=== PATIENT | male | born 1955 | race Caucasian/White ===

== ENCOUNTER 2022-12-08 09:05 | Outpatient (REF) | payer OTHER, SELFPAY ==
[2022-12-08 14:35] LABS: HCT 49.9 % (40.0-50.0); HGB 16.7 g/dL (13.5-17.5); MCH 33.3 pg (27.0-33.0); MCHC 33.5 % (32.0-36.0); MCV 100 fL (80-95); Platelet Count 256 10^3/uL (130-400); RBC 5.01 10^6/uL (4.36-5.78); RDW 12.6 % (11.8-14.1); RDW-SD 46.4 fL; WBC 7.02 10^3/uL (4.4-10.8)
[2022-12-08 15:00] LABS: ALT 71 U/L (16-63); AST 41 U/L (15-37); Albumin 3.8 g/dL (3.4-5.0); Alkaline Phosphatase 129 U/L (46-116); Anion Gap 7.9 mmol/L (3-11); BUN 10 mg/dL (7-18); Bilirubin, Total 0.4 mg/dL (0.2-1.0); CO2 27.1 mmol/L (21.0-32.0); Calculated LDL 180 mg/dL (<100); Chloride 104 mmol/L (98-107); Cholesterol 255 mg/dL (<200); Estimated GFR 82.49 (mL/min/1.73m2); Ferritin 548 ng/mL (26-388); Glucose 106 mg/dL (74-106); HDL Cholesterol 54 mg/dL (40-60); Potassium 4.2 mmol/L (3.5-5.1); Sodium 139 mmol/L (136-145); TSH 1.51 uIU/mL (0.36-3.74); Total Protein 8.1 g/dL (6.4-8.2); Triglyceride 105 mg/dL (<150)
[2022-12-08 16:02] LABS: Hemoglobin A1C 5.7 % (<5.7)
== END 2022-12-08 09:06 | disposition home or self-care (01) ==
LOC: NCHCN 09:05
PROVIDERS: Visit Provider Family Medicine
DX: I10 Essential (primary) hypertension (principal); E78.5 Hyperlipidemia, unspecified; Z00.00 Encounter for general adult medical examination without abnormal findings; R53.83 Other fatigue; Z13.0 Encounter for screening for diseases of the blood and blood-forming organs and certain disorders involving the immune mechanism
CPT/HCPCS: 80053; 80061; 85027; 82728; 83036; 84443

== ENCOUNTER 2023-11-24 08:54 | Outpatient (REF) | payer OTHER, SELFPAY ==
[2023-11-24 14:44] LABS: ALT 44 U/L (16-63); AST 29 U/L (15-37); Albumin 3.8 g/dL (3.4-5.0); Alkaline Phosphatase 118 U/L (46-116); Anion Gap 9.7 mmol/L (3-11); BUN 13 mg/dL (7-18); Bilirubin, Total 0.6 mg/dL (0.2-1.0); CO2 27.3 mmol/L (21.0-32.0); CREATININE 1.1 mg/dL (0.70-1.30); Calcium 9.8 mg/dL (8.5-10.1); Calculated LDL 98 mg/dL (<100); Chloride 100 mmol/L (98-107); Cholesterol 181 mg/dL (<200); Estimated GFR 73.58 (mL/min/1.73m2); Glucose 120 mg/dL (74-106); HDL Cholesterol 69 mg/dL (40-60); Hemoglobin A1C 5.6 % (<5.7); Potassium 4.6 mmol/L (3.5-5.1); Sodium 137 mmol/L (136-145); Triglyceride 71 mg/dL (<150)
== END 2023-11-24 08:55 | disposition home or self-care (01) ==
LOC: NCHCN 08:54
PROVIDERS: Visit Provider Family Medicine
DX: I10 Essential (primary) hypertension (principal); E78.5 Hyperlipidemia, unspecified; R73.03 Prediabetes
CPT/HCPCS: 80053; 80061; 83036

== ENCOUNTER 2024-03-12 13:48 | Outpatient (REF) | payer OTHER, SELFPAY ==
[2024-03-12 15:32] LABS: Anion Gap 10.2 mmol/L (3-11); BUN 10 mg/dL (7-18); CO2 27.8 mmol/L (21.0-32.0); CREATININE 1.1 mg/dL (0.70-1.30); Calcium 9.6 mg/dL (8.5-10.1); Chloride 103 mmol/L (98-107); Estimated GFR 73.12 (mL/min/1.73m2); Glucose 110 mg/dL (74-106); Potassium 3.9 mmol/L (3.5-5.1); Sodium 141 mmol/L (136-145)
== END 2024-03-12 13:49 | disposition home or self-care (01) ==
LOC: NCHCN 13:48
PROVIDERS: Visit Provider Family Medicine
DX: I10 Essential (primary) hypertension (principal)
CPT/HCPCS: 80048

== ENCOUNTER 2024-08-27 13:37 | Outpatient (REF) | payer MEDICARE, SELFPAY ==
[2024-08-27 15:02] LABS: BUN 14 mg/dL (7-18); Calcium 9.5 mg/dL (8.5-10.1); Chloride 104 mmol/L (98-107); Estimated GFR 81.98 (mL/min/1.73m2); Glucose 113 mg/dL (74-106); Potassium 4.6 mmol/L (3.5-5.1); Sodium 139 mmol/L (136-145)
== END 2024-08-27 13:38 | disposition home or self-care (01) ==
LOC: NCHCN 13:37
PROVIDERS: Visit Provider Family Medicine
DX: I10 Essential (primary) hypertension (principal)
CPT/HCPCS: 80048

== ENCOUNTER 2025-03-05 18:41 | Outpatient (REF) | payer MEDICARE, SELFPAY ==
[2025-03-05 21:33] LABS: HCT 45.4 % (40.0-50.0); HGB 15.4 g/dL (13.5-17.5); MCH 33.0 pg (27.0-33.0); MCHC 33.9 % (32.0-36.0); MCV 97 fL (80-95); MPV 10.0 fL (8.0-11.0); Platelet Count 278 10^3/uL (130-400); RBC 4.66 10^6/uL (4.36-5.78); RDW 12.4 % (11.8-14.1); RDW-SD 45.0 fL; WBC 7.44 10^3/uL (4.4-10.8)
== END 2025-03-05 18:42 | disposition home or self-care (01) ==
LOC: NCHCN 18:41
PROVIDERS: Visit Provider Family Medicine
DX: K92.1 Melena (principal)
CPT/HCPCS: 85027